=== PATIENT | male | born 1960 | race Two or more races ===

== ENCOUNTER 2022-11-08 18:39 | Emergency (ER) | payer OTHER ==
[~2022-11-08] VITALS: Ht 167.6 cm; Wt 81.6 kg
[2022-11-08] MEDS ORDERED: JANUMET XR 50-1 EAC1 PO (19:12)
[2022-11-08] MEDS ORDERED: PIOGLITAZONE HC15 MG PO (19:12)
[2022-11-08] MEDS ORDERED: TIZANIDINE HCL4 M1 PO (19:12)
[2022-11-08] MEDS ORDERED: AMLODIPINE BESY10 MG PO (19:12)
[2022-11-08] MEDS ORDERED: ROSUVASTATIN CA10 MG PO (19:12)
[2022-11-08] MEDS ORDERED: IRBESARTAN300 MG PO (19:13)
[2022-11-08] MEDS ORDERED: PREGABALIN100 MG PO (19:13)
[2022-11-08] MEDS ORDERED: FLUOROMETHOLONE5 ML OP (19:13)
[2022-11-08] MEDS ORDERED: TESTOSTERO200 MG/1 M IM (19:13)
[2022-11-08] MEDS ORDERED: CHILDREN'S ASPI81 MG PO (19:14)
== END 2022-11-09 00:31 | disposition home or self-care (01) ==
LOC: ER 18:39
PROVIDERS: General Practice
DX: R55 Syncope and collapse (principal)

== ENCOUNTER 2023-11-21 04:19 | Emergency (ER) | payer OTHER ==
[~2023-11-21] VITALS: Ht 177.8 cm; Wt 95.3 kg
[~2023-11-21 04:19] MED LIST: AMLODIPINE BESY10 MG PO; CHILDREN'S ASPI81 MG PO; FLUOROMETHOLONE5 ML OP; IRBESARTAN300 MG PO; JANUMET XR 50-1 EAC1 PO; PIOGLITAZONE HC15 MG PO; PREGABALIN100 MG PO; ROSUVASTATIN CA10 MG PO; TESTOSTERO200 MG/1 M IM; TIZANIDINE HCL4 M1 PO
[2023-11-21 06:08] LABS: HEMATOCRIT 38.3 % (39.0-48.0); MEAN CELL VOLUME 93.3 fL (80.0-100.00); MEAN CORPUSCULAR HEMOGLOBIN 31.7 pg (27.00-32.0); PLATELET COUNT 239 K/uL (150-450); RED CELL DISTRIBUTION WIDTH 14.9 % (11.5-14.5)
[2023-11-21 06:31] LABS: BILIRUBIN TOTAL 0.35 mg/dL (0.3-1.2); CALCIUM 9.6 mg/dL (8.5-10.1); CREATININE SERUM 1.43 mg/dL (0.70-1.30); GFR 50.27; GLOBULINA 3.1 G/DL (2.4-3.5); POTASSIUM 3.77 mEq/L (3.5-5.1); TOTAL PROTEIN 7.1 gm/dL (6.4-8.2)
== END 2023-11-21 06:55 | disposition home or self-care (01) ==
LOC: ER 04:20
PROVIDERS: General Practice
DX: R00.2 Palpitations (principal)

== ENCOUNTER 2023-11-23 07:59 | Emergency (ER) | payer OTHER ==
[~2023-11-23] VITALS: Ht 177.8 cm; Wt 95.3 kg
[2023-11-23] MEDS ORDERED: MECLIZINE HCL 25 MG TABLET PO STA (09:13)
[2023-11-23] MEDS ORDERED: DEXAMETHASONE SODIUM PHOSPHATE 4 MG/ML VIAL IM STA (09:14)
== END 2023-11-23 10:31 | disposition home or self-care (01) ==
LOC: ER 08:00
DX: R42 Dizziness and giddiness (principal); I10 Essential (primary) hypertension; E11.9 Type 2 diabetes mellitus without complications; Z79.84 Long term (current) use of oral hypoglycemic drugs
CPT/HCPCS: 70450; 96372; 99284; J1100